=== PATIENT | male | born 1970 | race Asian ===

== ENCOUNTER 2023-09-22 19:49 | Emergency (ER) | payer SELFPAY ==
--- NOTE | ~2023-09-22 | XR_ITS ---
EXAMINATION: XR HAND, RIGHT CLINICAL INFORMATION: Laceration of the base of the right index finger. COMPARISON: None available. TECHNIQUE: PA, lateral, and oblique views of the right hand. FINDINGS: The bones and soft tissues are normal. No fracture. Alignment is anatomic. Joint spaces are maintained. No erosions or soft tissue calcifications. A laceration is seen at the base of the right index finger laterally. XR/XR hand RT min 3V IMPRESSION: A laceration is seen in the base of the right index finger laterally. No underlying fracture or dislocation is seen. There is no foreign body noted.
[2023-09-22 20:23] VITALS: BP 182/116; PULSE 61; RESP 18; TEMP 37.1; O2SAT 99; BMI 29.0
--- NOTE | 2023-09-22 20:36 | ED.WOUNDLAC ---
HPI - Wound/Laceration General Chief Complaint: Wound/Laceration Stated Complaint: RT hand lac Time Seen by Provider: 09/23/23 00:05 Source: patient Mode of arrival: ambulatory Limitations: no limitations History of Present Illness HPI narrative: Patient is a 53-year-old male right-hand dominant who presents emergency department for evaluation of a laceration to the webbing between the thumb and his index finger. Laceration sustained accidentally 3 days ago on a piece of glass while washing dishes. He states that he washed the hand with soap and water and then applied turmeric to the area. He presents today concern that there may be an infection as he has noticed some clear fluid draining from the area. He is unaware of the date of his last tetanus vaccination. Related Data Previous Rx's ?Medication ?Instructions ?Recorded cephalexin 500 mg capsule 500 mg PO QID #27 caps 09/23/23 doxycycline hyclate 100 mg tablet 100 mg PO BID #13 tabs 09/23/23 Allergies Allergy/AdvReac Type Severity Reaction Status Date / Time No Known Allergies Allergy Verified 09/22/23 20:26 Review of Systems Review of Systems: Yes all other systems are reviewed and are negative FORMERLY [facility] Past Medical History Attestation statement: The following information was validated with the patient. Source: old records reviewed Social History Social History Advance Directives: No Advance Directives Information Provided: Yes Do you have a plan to hurt others: No Plan Physical Exam Vital Signs: Vital Signs: Last Vital Signs Temp 98.1 F 09/23/23 01:09 Pulse 62 09/23/23 01:09 Resp 16 09/23/23 01:09 BP 186/101 H 09/23/23 01:09 Pulse Ox 97 09/23/23 01:09 O2 Del Method Room Air 09/23/23 01:09 BMI result Body Mass Index 29.0 Appearance: Alert.?Oriented to person, place and time. No acute distress.?Normal affect. Neck: Normal inspection.? Neck supple.?? CVS: Heart sounds normal. Normal heart rate and rhythm.? Pulses normal.?? Respiratory: No respiratory distress.? Lung sounds clear to auscultation bilaterally?? Abdomen: Soft and non-tender. Normoactive bowel sounds. ? Skin: Skin warm and dry.? Normal skin color.? 3 cm linear laceration over the interdigital space between the thumb and index finger on the right, small amount of serous drainage and erythema over the dorsum of the hand extending over the 1st 2nd and 3rd metacarpal stopping at the wrist. Full range of motion to the digits. Neuro: Moves all extremities spontaneously. Sensation intact bilaterally. Ambulates with normal steady gait. Course Course Course Narrative: This is a Rapid Medical Examination (RME) performed by Thor Cisneros PA-C in triage. Full HPI, ROS, assessment and treatment plan per primary provider in the Main ED. 53-year-old male with no known medical history presents the ER for evaluation of a right hand laceration he sustained 3 days ago on a piece of glass. He states he was reaching into a cupboard, a glass cut his head at the base of his 1st digit. They are worried about possible infection. On examination there is a 3 cm linear laceration at the base of the 1st digit with some mild oozing of clear fluid. No obvious drainage, fluctuance. First finger is held in flexion with a finger splint. Plan: X-ray to assess for foreign body or bony involvement. Medical Decision Making Medical Decision Making MDM Narrative: Patient is a 53-year-old male who presents emergency department for evaluation of a laceration to the right hand as per HPI on physical exam portion of this note. There is a small amount of white drainage from the laceration, given duration since onset in current discharge would not recommend closure with suture. It was irrigated extensively with Betadine and saline. There is surrounding erythema over the dorsum of the hand, concerning for localized cellulitis for which he received the 1st dose of antibiotics while in the emergency department. The areas was marked with a skin marker and we discussed strict return precautions. XR was obtained and there is no osseous involvement or retained foreign body present. Additionally, he is noted to have elevated blood pressure reading while in the emergency department, he denies any history of elevated blood pressure, concern that it may be elevated secondary to pain. He has not taken any Tylenol or ibuprofen in a few hours. Discussed with patient obtaining basic labs to assess for abnormal renal function, electrolyte abnormality, urinalysis to assess for protein urea with elevated reading he however declines. Recommended following up with primary care provider for further evaluation, at this time he is asymptomatic. Differential Diagnosis Differential Diagnoses: The differential diagnosis associated with the presentation includes (See narrative above) Independent Interpretation I performed an independent interpretation of an: Plain X-Ray (No retained foreign body, no fracture) Radiology Impression Discussion of test interpretation with radiology: I have reviewed the radiologist's reading. Radiologist Impression: XR/XR hand RT min 3V IMPRESSION: A laceration is seen in the base of the right index finger laterally. No underlying fracture or dislocation is seen. There is no foreign body noted. Independent Historian Clinical information obtained from an independent historian. History obtained from or confirmed by: Friend Tests considered The following testing was considered but not selected: See narrative above Prescription Management I considered prescription management with: Antibiotic Discharge Plan Discharge Clinical Impression: Cellulitis of hand, Elevated blood pressure reading Laceration of hand Qualifiers: Encounter type: initial encounter Foreign body presence: without foreign body Laterality: right Qualified Code(s): S61.411A - Laceration without foreign body of right hand, initial encounter Patient Disposition: Home, Self-Care Instructions: Laceration (ED), Heart Healthy Diet (ED) Additional Instructions: Complete the entire course of antibiotics as prescribed. Do not stop taking early or skip doses even if your symptoms start to improve. As discussed, if the redness or swelling extends past the area that is marked with the marker then you should have this re-evaluated. Additionally if you develop fevers, chills, worsening pain, inability to move the hand/fingers then you should have this re-evaluated right away. On doxycycline, do not take pills immediately before going to bed and swallow pills with plenty of water. Avoid direct sunlight, iron, antacids, and Pepto Bismol. Call your provider if you develop new ringing in your ears, new problems hearing, dizziness, difficulty swallowing, rash, abdominal discomfort, nausea, or diarrhea.? Your blood pressure was elevated today. It is recommended that you follow-up with the primary care doctor regarding this elevated blood pressure reading. If it continues to be elevated, they may discuss with you starting a high blood pressure medication. Prescriptions: New doxycycline hyclate 100 mg tablet 100 mg PO BID Qty: 13 0RF cephalexin 500 mg capsule 500 mg PO QID Qty: 27 0RF Referrals: Physician,Unknown J [Primary Care Provider] - Print Language: Kyrgyz
[2023-09-23 01:09] VITALS: BP 186/101; PULSE 62; RESP 16; TEMP 36.7; O2SAT 97
[2023-09-23] MEDS: Doxycycline Monohydrate 100 MG CAPSULE PO (01:49)
[2023-09-23] MEDS: cephALEXin 500 MG CAPSULE PO (01:49)
[2023-09-23] MEDS: Diphth,Pertus(ACell),Tet Adult 0.5 ML SYRINGE IM (01:49)
[2023-09-23 01:59] VITALS: BP 186/101; PULSE 62; RESP 16; TEMP 36.7; O2SAT 97
== END 2023-09-23 02:00 | disposition home or self-care (01) ==
PROVIDERS: Emergency Provider Emergency Medicine
DX: S61.411A Laceration without foreign body of right hand, initial encounter (principal); S60.511A Abrasion of right hand, initial encounter; W25.XXXA Contact with sharp glass, initial encounter; Y93.9 Activity, unspecified; Y92.000 Kitchen of unspecified non-institutional (private) residence as the place of occurrence of the external cause; Y99.8 Other external cause status; Z23 Encounter for immunization
CPT/HCPCS: 73130; 90471; 90715; 99283; 99284